=== PATIENT | female | born 1985 | race Caucasian/White ===

== ENCOUNTER 2020-11-12 19:49 | Emergency (ER) | payer OTHER ==
[2020-11-12] MEDS ORDERED: HYDROcodone/Acetaminophen 10/325 mg Tablet ONE (20:29)
[2020-11-12] MEDS ORDERED: Doxycycline 100 MG CAP ONE (20:29)
== END 2020-11-12 20:35 | disposition home or self-care (01) ==
LOC: BURERS 19:49
DX: L02.212 Cutaneous abscess of back [any part, except buttock and flank] (principal)
CPT/HCPCS: 99283

== ENCOUNTER 2020-12-03 14:38 | Emergency (ER) | payer OTHER | END 2020-12-03 16:21 | disposition home or self-care (01) | LOC: BURERS 14:38 | DX: S86.911A Strain of unspecified muscle(s) and tendon(s) at lower leg level, right leg, initial encounter (principal); F17.210 Nicotine dependence, cigarettes, uncomplicated; X50.1XXA Overexertion from prolonged static or awkward postures, initial encounter ==